=== PATIENT | female | born 1965 | race Caucasian/White ===

== ENCOUNTER 2018-05-31 13:28 | Emergency (ER) | payer MEDICAID ==
[2018-05-31 13:37] VITALS: BMI 27.4
[2018-05-31 14:05] VITALS: BP 122/72; PULSE 67; RESP 18; TEMP 98.7; O2SAT 99
--- NOTE | 2018-05-31 14:06 | C.PDOC ---
Chief Complaint (Nursing): Upper Extremity Problem/Injury Past Medical History Vital Signs: Last Vital Signs Temp 98.7 F 05/31/18 13:36 Pulse 67 05/31/18 13:36 Resp 18 05/31/18 13:36 BP 122/72 05/31/18 13:36 Pulse Ox 99 05/31/18 13:36 - Medical History PMH: Anxiety, HTN Family History: States: Unknown Family Hx - Social History Hx Tobacco Use: Yes Hx Alcohol Use: No (pt denies) Hx Substance Use: No - Immunization History Hx Tetanus Toxoid Vaccination: (unk) Hx Influenza Vaccination: No Hx Pneumococcal Vaccination: No ED Course And Treatment O2 Sat by Pulse Oximetry: 99 Disposition - Disposition
--- NOTE | 2018-05-31 15:00 | C.PDOC ---
History Of Present Illness 53 y/o female presents to the ED for medical evaluation of pain to the left arm x 1 month. She describes it as a tightness when she closes her hand or try tries to grab something. She has taking otc nsaids with little relief. She denies seeking pmd or ortho evaluation. Denies trauma, injury to site, paresthesia, and weakness. Chief Complaint (Nursing): Upper Extremity Problem/Injury History Per: Patient History/Exam Limitations: no limitations Onset/Duration Of Symptoms: Days Current Symptoms Are (Timing): Still Present Quality: Tightness Severity: Mild Exacerbating Factor(s): Movement (when squeezing object in hands) Recent travel outside of the [place]: No Past Medical History Reviewed: Historical Data, Nursing Documentation, Vital Signs Vital Signs: Last Vital Signs Temp 98.7 F 05/31/18 13:36 Pulse 67 05/31/18 13:36 Resp 18 05/31/18 13:36 BP 122/72 05/31/18 13:36 Pulse Ox 99 05/31/18 13:36 - Medical History PMH: Anxiety, HTN Family History: States: Unknown Family Hx - Social History Hx Tobacco Use: Yes Hx Alcohol Use: No (pt denies) Hx Substance Use: No - Immunization History Hx Tetanus Toxoid Vaccination: (unk) Hx Influenza Vaccination: No Hx Pneumococcal Vaccination: No Review Of Systems Constitutional: Negative for: Fever, Chills Cardiovascular: Negative for: Chest Pain, Palpitations Respiratory: Negative for: Shortness of Breath Gastrointestinal: Negative for: Nausea, Vomiting Musculoskeletal: Positive for: Arm Pain (left pain). Negative for: Neck Pain, Shoulder Pain, Back Pain Skin: Negative for: Rash Neurological: Negative for: Headache, Dizziness Physical Exam - Physical Exam Appears: Non-toxic, No Acute Distress Skin: Normal Color, Warm, Dry Head: Atraumatic, Normacephalic Chest: Symmetrical Cardiovascular: Rhythm Regular Respiratory: Normal Breath Sounds, No Wheezing Gastrointestinal/Abdominal: Soft, No Tenderness Extremity: Normal ROM, Tenderness (slight upon palpation of left elbow), Capillary Refill (less than 2 seconds), No Deformity, No Swelling, Other (neurovascularly intact) Extremity: Bilateral: Atraumatic Pulses: Left Brachial: Normal, Right Brachial: Normal, Left Radial: Normal, Right Radial: Normal Neurological/Psych: Oriented x3, Normal Speech, Normal Cognition, Normal Motor, Normal Sensation ED Course And Treatment O2 Sat by Pulse Oximetry: 99 Medical Decision Making Medical Decision Making: Plan- Naproxen given Patient reassessed and notices slight improvement continue Naproxen twice a day Advised patient that Xray isn't warranted and recommend she obtain MRI through ortho or PMD Rest the elbow joint Ice/warm compresses Return to ED if symptoms worsen Disposition Counseled Patient/Family Regarding: Diagnosis, Need For Followup, Rx Given - Disposition Referrals: Maria Fernanda Rojas MD [Staff Provider] - Disposition: HOME/ ROUTINE Disposition Time: 14:57 Condition: STABLE Additional Instructions: Start Naproxen twice a day Rest the elbow joint Ice/warm compresses Follow up with Ortho in 1-2 days for possible MRI Return to ED if symptoms worsen Prescriptions: Naproxen [Naprosyn] 500 mg PO BID #30 tablet Instructions: Elbow Sprain (DC) Forms: [employer] (Latvian) - Clinical Impression Clinical Impression: Elbow pain, left, Sprain - PA / [employer] / Resident Statement MD/DO has reviewed & agrees with the documentation as recorded.
== END 2018-05-31 15:07 | disposition home or self-care (01) ==
LOC: C.ER 13:28
DX: S53.402A Unspecified sprain of left elbow, initial encounter (principal); X58.XXXA Exposure to other specified factors, initial encounter; M25.522 Pain in left elbow